=== PATIENT | female | born 2005 | race Caucasian/White ===

== ENCOUNTER 2024-02-28 03:41 | Emergency (ER) | payer SELFPAY ==
[2024-02-28] MEDS ORDERED: Lidocaine/Transparent Dressing 1 EACH KIT ONE (03:45)
[2024-02-28] MEDS ORDERED: Bacitracin 1 PK ONE (03:56)
[2024-02-28 04:41] LABS: #Basophils 0.04 10x3/uL (0.0-0.2); #Eosinophils 0.05 10x3/uL (0.0-0.5); %Basophils 0.5 % (0.0-2.0); %Eosinophils 0.6 % (0.0-6.0); %Lymphocytes 25.8 % (18.0-47.0); %Monocytes 5.2 % (0.0-10.0); %Neutrophils 67.6 % (40.0-75.0); Hematocrit 41.4 % (34.9-44.5); Hemoglobin 13.7 g/dL (12.0-15.5); Mean Corpuscular HGB CONC 33.1 g/dL (32.0-36.0); Mean Corpuscular Hemoglobin 30.7 pg (27.0-33.0); Mean Corpuscular Volume 92.8 fL (81.6-98.3); Platelet Count 182 10x3/uL (150-450); RBC Distribution Width 13.5 % (11.5-14.5); Red Blood Cell (RBC) Count 4.46 10x6/uL (3.90-5.03); White Blood Cell (WBC) Count 7.7 10x3/uL (3.5-10.5)
[2024-02-28 04:50] LABS: Acetaminophen Less than 10 mcg/mL (Less than 10); Alcohol 279.5 mg/dL (Less than 10); Salicylate Less than 8.0 mg/dL (Less than 8.0)
[2024-02-28 04:51] LABS: ALT (SGPT) 13 U/L (8-55); AST (SGOT) 18 U/L (5-30); Albumin 4.1 g/dL (3.5-5.0); Alcohol 277.7 mg/dL (Less than 10); Alkaline Phosphatase 55 U/L (40-100); Anion Gap 15 mmol/L (10-20); BUN (Urea Nitrogen) 14 mg/dL (8.4-21.0); Bilirubin, Total 0.3 mg/dL (0.2-1.2); Calc. Creatinine Clearance 0 mL/min (70-130); Calcium 8.9 mg/dL (7.8-10.44); Carbon Dioxide 23 mmol/L (22-29); Chloride 110 mmol/L (98-107); Estimated GFR 82; Globulin 3.1 g/dL (2.4-3.5); Glucose 98 mg/dL (70-105); Potassium 3.7 mmol/L (3.5-5.1); Protein, Total 7.2 g/dL (6.0-8.3); Sodium 144 mmol/L (136-145)
[2024-02-28] MEDS ORDERED: Ibuprofen 200 MG TAB ONE (13:01)
[2024-02-28 13:16] LABS: Bilirubin Neg (Negative); Blood, Urine Negative (Negative); Clarity Clear (Clear); Glucose, Urine (Dipstick) Normal (Negative); Ketone, Urine Negative (Negative); Leukocyte 25 (Negative); Nitrite Negative (Negative); Protein, Urine (Dipstick) Negative (Neg-Trace); Specific Gravity, Urine 1.015 (1.005-1.030); Urobilinogen Normal mg/dL (Less than 2)
[2024-02-28 13:17] LABS: Pregnancy Test - Urine (BHCG) Negative (Negative); Pregu Control Background? CLEAR/WHITE (CLR/WHITE); Pregu Control Bar Appear? YES (CONTROL BAR); Specific Gravity 1.015 (1.002-1.036)
[2024-02-28 13:25] LABS: Bacteria/HPF 3+ HPF (None Seen); CAUTI Indications for Culture Pelvic or flank pain; RBC/HPF 0-3 HPF (0-3); Squamous Epithelial 21-50 HPF (0-3)
[2024-02-28 13:26] LABS: Urine Culture Reflex Yes Yes
== END 2024-02-28 16:16 | disposition home or self-care (01) ==
LOC: CSHERS 03:41
DX: S51.812A Laceration without foreign body of left forearm, initial encounter (principal); F10.129 Alcohol abuse with intoxication, unspecified; F32.A Depression, unspecified; X78.9XXA Intentional self-harm by unspecified sharp object, initial encounter; Y93.89 Activity, other specified
CPT/HCPCS: 12007; 36415; 80053; 80307; 81001; 81025; 85025; 86765; 87077; 87086; 93005; 94760

== ENCOUNTER 2024-03-11 15:55 | Emergency (ER) | payer SELFPAY | END 2024-03-11 17:00 | disposition home or self-care (01) | LOC: CSHERS 15:55 | DX: S51.812D Laceration without foreign body of left forearm, subsequent encounter (principal); Z55.0 Illiteracy and low-level literacy ==